=== PATIENT | male | born 1990 | race Two or more races ===

== ENCOUNTER 2018-08-24 21:27 | Emergency (ER) | payer OTHER ==
[2018-08-24] MEDS ORDERED: LORazepam 2 MG/ML INJ IVP ONE (22:18)
--- NOTE | 2018-08-24 22:22 | EDPHY ---
H & P Stated Complaint: CP, SANKET ARM NUMBNESS Time Seen by Provider: 08/24/18 22:10 HPI/ROS: HPI The patient presents with chest pain which have been intermittent for the last several weeks though getting progressively worse. He has been having episodes, initially occurred after working out at the gym in which he feels his heart racing, feels achy pain throughout his chest, head, tingling in both of his hands associated with shortness of breath than generally feeling uncomfortable. These episodes last for minutes and then usually improve on their own. When he 1st developed these, he stopped using caffeine and a pre workout supplement, however his symptoms persisted. He does report he is more anxious than usual. He was at a friend's house tonight, smoked marijuana, was about to watch something on television when he developed another episode of this pain and he came into the emergency department.. REVIEW OF SYSTEMS 10 systems were reviewed and negative with the exception of the elements mentioned in the history of present illness. PMHx: Healthy Soc Hx: Here with his and children, uses marijuana frequently FHx: Anxiety, depression, schizophrenia PHYSICAL General Appearance: Alert, anxious appearing, hyperventilating Eyes: Pupils equal and round no pallor or injection ENT, Mouth: Mucous membranes moist Respiratory: There are no retractions, lungs are clear to auscultation Cardiovascular: Regular rate and rhythm Gastrointestinal: Abdomen is soft and non-tender, no masses, bowel sounds normal Neurological: A&O, moves all extremities Skin: Warm and dry, no rashes Musculoskeletal: Neck is supple non tender Extremities: symmetrical, full range of motion Psychiatric: Patient is oriented X 3, there is no agitation Source: Patient, Family Exam Limitations: No limitations - Personal History Current Tetanus Diphtheria and Acellular Pertussis (TDAP): No - Medical/Surgical History Hx Asthma: No Hx Chronic Respiratory Disease: No Hx Diabetes: No Hx Cardiac Disease: No Hx Renal Disease: No Hx Cirrhosis: No Hx Alcoholism: No Hx HIV/AIDS: No Hx Splenectomy or Spleen Trauma: No Other PMH: none - Social History Smoking Status: Current every day smoker Constitutional: Initial Vital Signs Temperature (C) 36.4 C 08/24/18 21:33 Heart Rate 85 08/24/18 21:33 Respiratory Rate 18 08/24/18 21:33 Blood Pressure 152/75 H 08/24/18 21:33 O2 Sat (%) 97 05/11/19 21:33 O2 Delivery Mode Room Air Allergies/Adverse Reactions: No Known Allergies Allergy (Unverified 10/08/15 20:00) Home Medications: Medication Instructions Recorded Penicillin V Potassium [Pen Vk] 500 mg PO Q6 10 Days tab 10/10/15 methylPREDNISolone [Medrol Dose 4 mg PO DAILY #1 ea 10/10/15 Librado] Medical Decision Making - Diagnostics EKG Interpretation: EKG: Complete interpretation has been separately recorded in the [facility] archive. Summary impression: Normal sinus rhythm Imaging Results: Imaging Impressions Chest X-Ray 08/24/18 22:18 Impression: Normal. Chest x-ray one view demonstrates no acute abnormalities, interpreted by me, radiology interpretation is pending. Imaging: I viewed and interpreted images myself Differential Diagnosis: 27-year-old male who is healthy presents with several weeks of episodes of chest pain associated with feelings of anxiety, shortness of breath, paresthesias of his extremities. Plan for dose of Ativan, chest x-ray, EKG, labs including troponin. Patient felt much better after receiving Ativan. Suspect he was suffering from an anxiety attack. I have discussed anxiety with him, we have discussed treatment modalities including cognitive behavioral therapy, possible medication use. He does not have a primary care doctor at this time and is awaiting insurance through his job. I have instructed him that he can go to [facility] or [facility] and he seems receptive to this. I will give him a pill pack of Ativan to use only as needed if he is having a severe attack. He is receptive to this. I have considered ACS, pneumothorax as other causes of his symptoms. - Data Points Laboratory Results: Laboratory Results 08/24/18 21:45 08/24/18 21:45 08/24/18 08/24/18 08/24/18 21:48 21:45 21:45 WBC 10.24 10^3/uL H 10^3/uL (3.80-9.50) RBC 4.58 10^6/uL 10^6/uL (4.40-6.38) Hgb 14.3 g/dL g/dL (13.7-17.5) Hct 40.9 % % (40.0-51.0) MCV 89.3 fL fL (81.5-99.8) MCH 31.2 pg pg (27.9-34.1) MCHC 35.0 g/dL g/dL (32.4-36.7) RDW 12.5 % % (11.5-15.2) Plt Count 242 10^3/uL 10^3/uL (150-400) MPV 10.5 fL fL (8.7-11.7) Neut % (Auto) 52.3 % % (39.3-74.2) Lymph % (Auto) 37.8 % % (15.0-45.0) [place] % (Auto) 8.4 % % (4.5-13.0) Eos % (Auto) 0.7 % % (0.6-7.6) Baso % (Auto) 0.4 % % (0.3-1.7) Nucleat RBC Rel Count 0.0 % % (0.0-0.2) Absolute Neuts (auto) 5.36 10^3/uL 10^3/uL (1.70-6.50) Absolute Lymphs (auto) 3.87 10^3/uL H 10^3/uL (1.00-3.00) Absolute Monos (auto) 0.86 10^3/uL H 10^3/uL (0.30-0.80) Absolute Eos (auto) 0.07 10^3/uL 10^3/uL (0.03-0.40) Absolute Basos (auto) 0.04 10^3/uL 10^3/uL (0.02-0.10) Absolute Nucleated RBC 0.00 10^3/uL 10^3/uL (0-0.01) Immature Gran % 0.4 % % (0.0-1.1) Immature Gran # 0.04 10^3/uL 10^3/uL (0.00-0.10) Sodium 136 mEq/L mEq/L (135-145) Potassium 3.2 mEq/L L mEq/L (3.5-5.2) Chloride 100 mEq/L mEq/L (97-110) Carbon Dioxide 23 mEq/l mEq/l (22-31) Anion Gap 13 mEq/L mEq/L (6-14) BUN 19 mg/dL mg/dL (7-23) Creatinine 1.0 mg/dL mg/dL (0.7-1.3) Estimated GFR > 60 Glucose 145 mg/dL H mg/dL (70-100) Calcium 9.4 mg/dL mg/dL (8.5-10.4) POC Troponin I 0.00 ng/mL ng/mL (0.00-0.08) Medications Given: Discontinued Medications Lorazepam (Ativan Injection) 1 mg IVP EDNOW ONE Stop: 08/24/18 22:19 Last Admin: 08/24/18 22:30 Dose: 1 mg Point of Care Test Results: Chemistry 08/24/18 21:48 POC Troponin I 0.00 ng/mL ng/mL (0.00-0.08) Departure - Departure Disposition: Home, Routine, Self-Care Clinical Impression: Anxiety Chest pain Qualifiers: Chest pain type: unspecified Qualified Code(s): R07.9 - Chest pain, unspecified Condition: Good Instructions: Anxiety (ED), Anxiolysis in Adults (ED) Additional Instructions: Use Ativan 1/2 tab as needed for any anxiety attack. This is a short-term medication and it is important that you try to get follow-up with primary care to begin further treatment of your anxiety. Referrals: [facility],. [Clinic] - As per Instructions [facility],. [Clinic] - As per Instructions
[2018-08-24 22:23] LABS: PLATELET COUNT 242 10^3/uL (150-400)
--- NOTE | 2018-08-24 22:38 | CPEKG ---
Test Reason : OPEN Blood Pressure : / mmHG Vent. Rate : 092 BPM Atrial Rate : 091 BPM P-R Int : 144 ms QRS Dur : 091 ms QT Int : 362 ms P-R-T Axes : 055 053 042 degrees QTc Int : 448 ms Sinus rhythm Confirmed by Leonides Michele ([id number]) on 08/24/2018 10:37:20 PM Referred By: PHYSICIAN ED Confirmed By:Leonides Michele
[2018-08-24] MEDS ORDERED: LORAZEPAM 1 MG PREPACK#4 BTL TAKEHOME ONE (23:19)
[2018-08-24 23:53] VITALS: BP 116/57
== END 2018-08-24 23:52 | disposition home or self-care (01) ==
DX: F41.9 Anxiety disorder, unspecified (principal); F20.89 Other schizophrenia; F17.200 Nicotine dependence, unspecified, uncomplicated
CPT/HCPCS: 84484-ER; 96374; J2060